=== PATIENT | male | born 1975 | race Caucasian/White ===

== ENCOUNTER 2017-01-23 15:51 | Emergency (ER) | payer BC, OTHER ==
--- NOTE | 2017-01-23 17:36 | Emergency Department Record ---
History of Present Illness - General Chief complaint: Eye Problem Stated complaint: BOTH EYES RED Time Seen by Provider: 01/23/17 17:33 Source: Patient, RN notes reviewed Mode of Arrival: Ambulatory - History of Present Illness Initial comments: using principal architect 2 days ago chief complaint: Eye redness Onset/Timin -: Days(s) Onset Description: Awoke with symptoms Location: Both eyes Place: Home If Injury: None Eye Symptoms: Burning, Blurry vision, Discharge, Itching, Pain, Redness Severity: Moderate Severity scale (1-10): 5 If Pain, Quality: Aching Consistency: Constant - Related Data Visual acuity (L) = 20/: 70 Visual acuity (R) = 20/: 70 Patient Tetanus UTD (within 5 yrs): Yes Home Medications Medication Instructions Recorded Confirmed Last Taken Sertraline HCl [Sertraline HCl] 100 mg PO DAILY 03/17/14 01/23/17 1 Day Ago Ibuprofen 800 mg PO QID ml 12/30/15 01/23/17 1 Day Ago Previous Rx's Medication Instructions Recorded Sulfacetamide Sodium [Bleph-10] 1 - 2 drop AFFEYE QID #5 ml 01/23/17 Allergies Allergy/AdvReac Type Severity Reaction Status Date / Time NO KNOWN DRUG ALLERGY Allergy HYPERSENSIT Uncoded 01/23/17 17:12 IVITY Travel Screening - Travel/Exposure Within Last 30 Days Have you traveled within the last 30 days?: No - Travel/Exposure Within Last Year Have you traveled outside the [place] in the last year?: No - Additonal Travel Details Have you been exposed to anyone with a communicable illness?: No - Travel Symptoms Symptom Screening: None Review of Systems Reviewed: No additional complaints except as noted below Constitutional: Reports: As per HPI. Denies: Chills, Fever, Malaise, Night sweats, Weakness, Weight change Eyes: Reports: As per HPI, Eye discharge, Other (gravel type feeling in eyes). Denies: Eye pain, Photophobia, Vision change ENT: Reports: As per HPI. Denies: Congestion, Dental pain, Ear pain, Epistaxis , Hearing loss, Throat pain Respiratory: Reports: As per HPI. Denies: Cough, Dyspnea, Hemoptysis, Stridor, Wheezes Cardiovascular: Reports: As per HPI. Denies: Arrhythmia, Chest pain, Dyspnea on exertion, Edema, Murmurs, Orthopnea, Palpitations, Paroxysmal nocturnal dyspnea, Rheumatic Fever, Syncope Endocrine: Reports: As per HPI. Denies: Fatigue, Heat or cold intolerance, Polydipsia, Polyuria Gastrointestinal: Reports: As per HPI. Denies: Abdominal pain, Constipation, Diarrhea, Hematemesis, Hematochezia, Melena, Nausea, Vomiting Genitourinary: Reports: As per HPI. Denies: Dysuria, Frequency, Hematuria, Incontinence, Retention, Testicular pain, Testicular mass, Urgency Musculoskeletal: Reports: As per HPI. Denies: Arthralgia, Back pain, Gout, Joint swelling, Myalgia, Neck pain Skin: Reports: As per HPI. Denies: Bruising, Change in color, Change in hair/ nails, Lesions, Pruritus, Rash Neurological: Reports: As per HPI. Denies: Abnormal gait, Confusion, Headache, Numbness, Paresthesias, Seizure, Tingling, Tremors, Vertigo, Weakness Psychiatric: Reports: As per HPI. Denies: Anxiety, Auditory hallucinations, Depression, Homicidal thoughts, Suicidal thoughts, Visual hallucinations Hematological/Lymphatic: Reports: As per HPI. Denies: Anemia, Blood Clots, Easy bleeding, Easy bruising, Swollen glands Past Medical History - SOCIAL HISTORY Smoking Status: Never smoker Alcohol Use: Occassional Drug Use: None - RESPIRATORY Hx Respiratory Disorders: No - CARDIOVASCULAR Hx Cardio Disorders: No - NEURO Hx Neuro Disorders: No - GI Hx GI Disorders: No - Hx Genitourinary Disorders: No - ENDOCRINE Hx Endocrine Disorders: No - MUSCULOSKELETAL Hx Musculoskeletal Disorders: Yes Comment:: back spasms - PSYCH Hx Psych Problems: Yes Hx Anxiety: Yes - HEMATOLOGY/ONCOLOGY Hx Hematology/Oncology Disorders: No Family Medical History Any Significant Family History?: Yes Physical Exam - General General Appearance: Alert, Oriented x3, Cooperative, No acute distress - Head Head exam: Normal inspection - Eye Eye exam: PERRL, Conjunctival injection, EOMI Pupils: Normal accommodation - ENT ENT exam: Normal exam, Mucous membranes moist, Normal external ear exam, Normal orophraynx, TM's normal bilaterally Ear exam: Normal external inspection. negative: External canal tenderness Nasal Exam: Normal inspection. negative: Discharge, Sinus tenderness Mouth exam: Normal external inspection, Tongue normal Teeth exam: Normal inspection. negative: Dental caries Throat exam: Normal inspection. negative: Tonsillar erythema, Tonsillar exudate - Neck Neck exam: Normal inspection, Full ROM. negative: Tenderness - Respiratory Respiratory exam: Normal lung sounds bilaterally. negative: Respiratory distress - Cardiovascular Cardiovascular Exam: Regular rate, Normal rhythm, Normal heart sounds - GI/Abdominal GI/Abdominal exam: Soft, Normal bowel sounds. negative: Tenderness - Rectal Rectal exam: Deferred - exam: Deferred - Extremities Extremities exam: Normal inspection, Full ROM, Normal capillary refill. negative: Tenderness - Back Back exam: Reports: Normal inspection, Full ROM. Denies: Muscle spasm, Rash noted, Tenderness - Neurological Neurological exam: Alert, Normal gait, Oriented X3, Reflexes normal - Psychiatric Psychiatric exam: Normal affect, Normal mood - Skin Skin exam: Dry, Intact, Normal color, Warm Course Vital Signs 01/23/17 17:03 Temperature 98.6 F Pulse Rate 91 H Respiratory 16 Rate Blood Pressure 137/93 Pulse Ox 96 slight up take of flurscein both eyes no abrasions Disposition Clinical Impression: Keratitis Conjunctivitis Qualifiers: Conjunctivitis type: acute Acute conjunctivitis type: unspecified Laterality: bilateral Qualified Code(s): H10.33 - Unspecified acute conjunctivitis, bilateral Disposition: Home, Self-Care Return To Work/School Note Provided: Yes Condition: (1) Good Instructions: Corneal Flash Emerson (ED) Additional Instructions: follow up with eye Dr in two days Prescriptions: Sulfacetamide Sodium [Bleph-10] 1 - 2 drop AFFEYE QID #5 ml Forms: Patient Portal Access Time of Disposition: 18:00
[2017-01-23] MEDS ORDERED: PROPARACAINE HCL OPTH 15ML BTL OPTH ONE (18:13)
[2017-01-23] MEDS ORDERED: SULFACETAMIDE SODIUM 15ML BTL OPTH ONE (18:14)
== END 2017-01-23 18:17 | disposition home or self-care (01) ==
LOC: ER 15:51
DX: H16.133 Photokeratitis, bilateral (principal); H10.33 Unspecified acute conjunctivitis, bilateral; W89.8XXA Exposure to other man-made visible and ultraviolet light, initial encounter; Y92.009 Unspecified place in unspecified non-institutional (private) residence as the place of occurrence of the external cause
CPT/HCPCS: 99282

== ENCOUNTER 2018-05-07 13:51 | Emergency (ER) | payer BC ==
[2018-05-07] MEDS ORDERED: SODIUM CHLORIDE 0.9% 500 ML IV ONE (14:27)
[2018-05-07] MEDS ORDERED: ACETAMINOPHEN 1,000 MG/100 ML BTL IVPB ONE (14:27)
[2018-05-07] MEDS ORDERED: KETOROLAC 30 MG/ML VIAL IVP ONE (14:27)
--- NOTE | 2018-05-07 14:30 | Emergency Department Record ---
History of Present Illness - General Chief complaint: Flank Pain Stated complaint: KIDNEY STONE Time Seen by Provider: 05/07/18 14:24 Source: Patient Mode of Arrival: Ambulatory Limitations: No limitations - History of Present Illness Initial comments: 42 yo male presents with right flank pain. The pain is sharp. It radiates around the side to the front. It is associated with nausea and vomiting. No rash. He has had renal stones in the past. This is similar. No fevers. No hematuria. No retention. MD Complaint: Other (right flank pain) Onset/Timin -: Days(s) Location: Right flank Radiation: R flank Severity: Severe Severity scale (1-10): 7 Quality: Sharp Consistency: Constant Improves with: None Worsens with: None Reports: Nausea/vomiting - Related Data Previous Rx's Medication Instructions Recorded Ondansetron [Zofran Odt] 4 mg PO Q8H #15 tab.rapdis 05/07/18 Tamsulosin HCl [Flomax] 0.4 mg PO DAILY #10 cap.er.24h 05/07/18 Allergies Allergy/AdvReac Type Severity Reaction Status Date / Time NO KNOWN DRUG ALLERGY Allergy HYPERSENSIT Uncoded 01/23/17 17:12 IVITY Travel Screening - Travel/Exposure Within Last 30 Days Have you traveled within the last 30 days?: No Review of Systems Constitutional: Denies: Chills, Fever, Malaise, Weakness, Other Eyes: Denies: Eye discharge ENT: Denies: Congestion Respiratory: Denies: Cough Cardiovascular: Denies: Chest pain, Syncope Endocrine: Denies: Fatigue Gastrointestinal: Reports: As per HPI, Abdominal pain, Nausea. Denies: Diarrhea Genitourinary: Denies: Dysuria, Frequency, Hematuria Musculoskeletal: Reports: Back pain. Denies: Arthralgia Skin: Denies: Bruising, Change in color, Rash Neurological: Denies: Headache Psychiatric: Denies: Anxiety Hematological/Lymphatic: Denies: Easy bleeding, Easy bruising Past Medical History - SOCIAL HISTORY Smoking Status: Never smoker Alcohol Use: Rare Drug Use: None - RESPIRATORY Hx Respiratory Disorders: No - CARDIOVASCULAR Hx Cardio Disorders: No - NEURO Hx Neuro Disorders: No - GI Hx GI Disorders: No - Hx Genitourinary Disorders: Yes Hx Kidney Stones: Yes - ENDOCRINE Hx Endocrine Disorders: No - MUSCULOSKELETAL Hx Musculoskeletal Disorders: Yes Comment:: back spasms - PSYCH Hx Psych Problems: Yes Hx Anxiety: Yes - HEMATOLOGY/ONCOLOGY Hx Hematology/Oncology Disorders: No Family Medical History Any Significant Family History?: No Physical Exam - General General Appearance: Alert, Oriented x3, Cooperative, No acute distress Limitations: No limitations - Head Head exam: Normal inspection - Eye Eye exam: Normal appearance. negative: Conjunctival injection, Scleral icterus - ENT ENT exam: Normal exam Ear exam: Normal external inspection Nasal Exam: Normal inspection Mouth exam: Normal external inspection - Neck Neck exam: Normal inspection - Respiratory Respiratory exam: Normal lung sounds bilaterally. negative: Respiratory distress - Cardiovascular Cardiovascular Exam: Regular rate, Normal rhythm, Normal heart sounds - GI/Abdominal GI/Abdominal exam: Soft. negative: Tenderness - Rectal Rectal exam: Deferred - exam: Deferred - Extremities Extremities exam: Normal inspection, Full ROM, Normal capillary refill. negative: Tenderness - Back Back exam: Denies: CVA tenderness (R), CVA tenderness (L), Paraspinal tenderness , Rash noted, Tenderness, Vertebral tenderness - Neurological Neurological exam: Alert, Normal gait, Oriented X3 - Psychiatric Psychiatric exam: Normal affect, Normal mood - Skin Skin exam: Dry, Intact, Normal color, Warm Course Vital Signs 05/07/18 14:09 Temperature 97.5 F L Pulse Rate [ 76 Pulse Ox Probe] Respiratory 20 Rate Blood Pressure 134/92 [Left Arm] Pulse Ox 98 - Reevaluation(s) Reevaluation #1: 05/07/18 14:52 The CBC was reviewed. No acute changes. 05/07/18 15:06 No changes on the BMP 05/07/18 15:[address] demonstrated a 3mm mid to distal obstructing stone. Bilateral intrarenal stones Pain and nausea much improved. 05/07/18 15:48 The UA was reviewed No signs of convincing infection 05/07/18 15:51 The pain is well controlled. We discussed DC, close follow up and reasons to return to the ED Medical Decision Making - Lab Data Result diagrams: 05/07/18 14:35 05/07/18 14:35 Disposition Disposition: Discharge Clinical Impression: Renal colic on right side Disposition: Home, Self-Care Condition: (1) Good Instructions: Renal Colic (ED) Additional Instructions: Return to the ER if fever, uncontrolled pain, vomiting or any concerns Strain your urine to see if the stone passes Prescriptions: Ondansetron [Zofran Odt] 4 mg PO Q8H #15 tab.rapdis Tamsulosin HCl [Flomax] 0.4 mg PO DAILY #10 cap.er.24h Referrals: LISA FOY M.D. [MEDICAL DOCTOR] - [facility] [Provider Group] Forms: Patient Portal Access Time of Disposition: 15:49 Quality - Quality Measures Quality Measures: N/A - Blood Pressure Screening Does Patient Have Any of the Following: No Blood Pressure Classification: Hypertensive Reading Systolic Measurement: 134 Diastolic Measurement: 92 Screening for High Blood Pressure: < Pre-Hypertensive BP, F/U Documented > [ G8950] Pre-Hypertensive Follow-up Interventions: Referral to alternative/primary care provider.
[2018-05-07 14:44] LABS: BASO % 0.9 % (0-6); EOS % 3.4 % (0-6); GRAN % 54.9 % (47-80); HEMATOCRIT 43.5 % (42.0-52.0); HEMOGLOBIN 15.3 gm/dl (14.0-18.0); LYMPH % 28.5 % (16-45); MEAN CELL VOLUME 87.3 fl (81-97); MEAN CORPUSCULAR HEMOGLOBIN 30.7 pg (27-33); MEAN CORPUSCULAR HGB CONC 35.2 g/dl (32-36); MEAN PLATELET VOLUME 9.9 fl (7.4-10.4); MONO % 12.3 % (0-9); PLATELET COUNT 279 K/uL (130-400); RED BLOOD COUNT 4.98 M/uL (4.40-5.70); WHITE BLOOD COUNT W/O DIFF 5.6 K/uL (4.2-12.2)
[2018-05-07 14:53] LABS: BLOOD UREA NITROGEN 14 mg/dL (6-20); CREATININE 0.9 mg/dL (0.7-1.2); EST GLOMERULAR FILTRATION RATE > 60 mL/min
[2018-05-07 14:56] LABS: GLUCOSE,RANDOM 142 mg/dL (74-109)
[2018-05-07] MEDS ORDERED: ONDANSETRON HCL IV 4 MG/2 ML VIAL IVP ONE (15:01)
[2018-05-07] MEDS ORDERED: TAMSULOSIN HCL 0.4 MG CAP.ER.24H PO ONE (15:14)
[2018-05-07 15:24] LABS: URINE BILIRUBIN SMALL (NEGATIVE); URINE BLOOD LARGE (NEGATIVE); URINE GLUCOSE (UA) NEGATIVE (NEGATIVE); URINE KETONE NEGATIVE (NEGATIVE); URINE LEUKOCYTE ESTERASE TRACE (NEGATIVE); URINE NITRITE NEGATIVE (NEGATIVE); URINE UROBILINOGEN 0.2 E.U./dL (0.20 - 1.00)
[2018-05-07 15:25] LABS: URINE APPEARANCE CLOUDY; URINE COLOR OTHER
[2018-05-07 15:29] LABS: URINE BACTERIA FEW; URINE EPITHELIAL CELLS 0 - 2 (FEW); URINE RBC >50 (NONE SEEN); URINE WBC 0 - 2 (0-2/hpf)
[2018-05-07] MEDS ORDERED: ONDANSETRON 4 MG ODT TABLET SL ONE (16:00)
--- NOTE | 2018-05-08 15:00 | CT SCAN REPORT ---
EXAM: CT OF THE ABDOMEN AND PELVIS WITHOUT CONTRAST HISTORY: RIGHT FLANK PAIN. UNABLE TO URINATE. TECHNIQUE: Routine noncontrast CT images of the abdomen and pelvis were obtained. FINDINGS: The visualized lung bases are unremarkable. The liver, gallbladder, pancreas, spleen, and adrenals have a normal noncontrast appearance. There is a 5 cm size range fluid density cyst within the interpolar right kidney on this noncontrast exam. There are multiple right greater than left intrarenal calculi. There is mild hydroureteronephrosis. No left ureteral calculus was seen. The bowel is normal in caliber. The appendix has a normal noncontrasted appearance. No gastrointestinal wall thickening. The bladder is unremarkable. The prostate is present. The aorta is normal in caliber. No abdominal or pelvic lymphadenopathy. No free air or free fluid. There is bilateral L5 pars defects with Grade 1 anterolisthesis L5-S1. Moderate degenerative disk disease at L5-S1. IMPRESSION: 1. THERE IS A 3 MM OBSTRUCTING CALCULUS WITHIN THE MID/DISTAL RIGHT URETER. THIS CAUSES MILD RIGHT HYDROURETERONEPHROSIS. 2. BILATERAL INTRARENAL CALCULI, RIGHT GREATER THAN LEFT. 3. LARGE 5 CM SIZE RANGE RIGHT RENAL CYST SUBOPTIMALLY ASSESSED ON THIS NONCONTRAST CT. 4. BILATERAL L5 PARS DEFECTS WITH GRADE 1 ANTEROLISTHESIS AT L5-S1 AND MODERATE DEGENERATIVE DISK DISEASE. JOB NUMBER: [id number] [facility]
== END 2018-05-07 16:17 | disposition home or self-care (01) ==
LOC: ER 13:51
DX: N13.2 Hydronephrosis with renal and ureteral calculous obstruction (principal); R11.2 Nausea with vomiting, unspecified; Z87.442 Personal history of urinary calculi
CPT/HCPCS: 99284 ×2; 96365; 96375; 85025; 80048; 81001; 74176; J1885; J2405

== ENCOUNTER 2018-05-09 17:30 | Emergency (ER) | payer BC ==
--- NOTE | 2018-05-09 18:25 | Emergency Department Record ---
History of Present Illness - General Chief complaint: Flank Pain Stated complaint: RT FLANK PAIN, CANT KEEP FOOD DOWN Time Seen by Provider: 05/09/18 18:15 Source: Patient Mode of Arrival: Ambulatory Limitations: No limitations - History of Present Illness Initial comments: 42 yo male returns to ED for evaluation of nausea, vomiting, and unable to tolerate PO fluids following diagnosis 2 days ago of a 3 mm mid-ureteral obstructing calculus. Patient reports "feeling hot and chills alternating", denies anayeli fever symptoms. Patient does report a history of kidney stones previously but denies ever seeing a urologist previously. Patient has been taking Flomax and Zofran at home for his symptoms without improvement. MD Complaint: Other Onset/Timin -: Days(s) Location: Right flank Severity: Moderate Severity scale (1-10): 8 Quality: Sharp Consistency: Constant Improves with: None Worsens with: None Reports: Denies other symptoms - Related Data Previous Rx's Medication Instructions Recorded Ondansetron [Zofran Odt] 4 mg PO Q8H #15 tab.rapdis 05/07/18 Tamsulosin HCl [Flomax] 0.4 mg PO DAILY #10 cap.er.24h 05/07/18 Allergies Allergy/AdvReac Type Severity Reaction Status Date / Time No Known Drug Allergies Allergy Verified 05/09/18 17:57 Travel Screening - Travel/Exposure Within Last 30 Days Have you traveled within the last 30 days?: No - Travel/Exposure Within Last Year Have you traveled outside the [place] in the last year?: No - Additonal Travel Details Have you been exposed to anyone with a communicable illness?: No - Travel Symptoms Symptom Screening: None Review of Systems Constitutional: Reports: Chills. Denies: Fever, Malaise, Night sweats Eyes: Denies: Eye discharge, Eye pain ENT: Denies: Congestion, Ear pain, Epistaxis Respiratory: Denies: Cough, Dyspnea Cardiovascular: Denies: Chest pain, Dyspnea on exertion Endocrine: Denies: Fatigue, Heat or cold intolerance Gastrointestinal: Reports: Abdominal pain, Nausea, Vomiting. Denies: Constipation Genitourinary: Reports: Hematuria. Denies: Incontinence, Retention Musculoskeletal: Reports: Back pain. Denies: Arthralgia Skin: Denies: Bruising, Change in color Neurological: Reports: Headache. Denies: Abnormal gait, Confusion Psychiatric: Denies: Anxiety Hematological/Lymphatic: Denies: Anemia, Blood Clots Past Medical History - SOCIAL HISTORY Smoking Status: Never smoker Alcohol Use: None Drug Use: None - RESPIRATORY Hx Respiratory Disorders: No - CARDIOVASCULAR Hx Cardio Disorders: No - NEURO Hx Neuro Disorders: No - GI Hx GI Disorders: No - Hx Genitourinary Disorders: Yes Hx Kidney Stones: Yes - ENDOCRINE Hx Endocrine Disorders: No - MUSCULOSKELETAL Hx Musculoskeletal Disorders: Yes Comment:: back spasms - PSYCH Hx Psych Problems: Yes Hx Anxiety: Yes - HEMATOLOGY/ONCOLOGY Hx Hematology/Oncology Disorders: No Family Medical History Any Significant Family History?: No Physical Exam - General General Appearance: Alert, Oriented x3, Cooperative, Moderate distress Limitations: No limitations - Head Head exam: Atraumatic, Normocephalic, Normal inspection Head exam detail: negative: Abrasion, Contusion, William's sign, General tenderness, Hematoma, Laceration - Eye Eye exam: Normal appearance. negative: Conjunctival injection, Periorbital swelling, Periorbital tenderness, Scleral icterus - ENT Ear exam: negative: Auricular hematoma, Auricular trauma Nasal Exam: negative: Active bleeding, Discharge, Dried blood, Foreign body Mouth exam: negative: Drooling, Laceration, Muffled voice, Tongue elevation - Neck Neck exam: Normal inspection. negative: Meningismus, Tenderness - Respiratory Respiratory exam: Normal lung sounds bilaterally. negative: Respiratory distress, Rhonchi, Stridor, Wheezes - Cardiovascular Cardiovascular Exam: Regular rate, Normal rhythm, Normal heart sounds - GI/Abdominal GI/Abdominal exam: Soft. negative: Rebound, Rigid, Tenderness - Rectal Rectal exam: Deferred - exam: Deferred - Extremities Extremities exam: Normal inspection. negative: Pedal edema, Tenderness - Back Back exam: Reports: CVA tenderness (R). Denies: CVA tenderness (L) - Neurological Neurological exam: Alert, Normal gait, Oriented X3 - Psychiatric Psychiatric exam: Normal affect, Normal mood - Skin Skin exam: Normal color. negative: Abrasion Type of lesion: negative: abrasion Course Vital Signs 05/09/18 17:58 Temperature 98.3 F Pulse Rate 93 H Respiratory 20 Rate Blood Pressure 133/88 Pulse Ox 98 - Reevaluation(s) Reevaluation #1: 05/09/18 18:24 CT Abdomen and Pelvis 05/07/18: 3 mm obstructing calculus mid-right ureter with mild hydronephrosis Reevaluation #2: 05/09/18 18:49 Labs reviewed, WBC 12.9, labs are otherwise grossly unremarkable for an acute process. UA does not appear c/w infection, mild hematuria is present (10-15 RBCs). Will reassess following analgesia and anti-emetics. Reevaluation #3: 05/09/18 19:21 Patient reassessed and reports that he is feeling much better. Discussed treatment options, patient reports that he would like to go home at this time. Medical Decision Making - Lab Data Result diagrams: 05/09/18 18:10 05/09/18 18:10 Disposition Disposition: Discharge Clinical Impression: Renal colic on right side Nausea & vomiting Qualifiers: Vomiting type: unspecified Vomiting Intractability: non-intractable Qualified Code(s): R11.2 - Nausea with vomiting, unspecified Disposition: Home, Self-Care Condition: (2) Stable Instructions: Renal Colic (ED) Additional Instructions: Return to ED if your symptoms worsen or if you have any concerns. Continue Zofran and Tylenol as directed. Follow-up with Dr. Goldsmith as scheduled.. Forms: Patient Portal Access Time of Disposition: 19:26 Quality - Quality Measures Quality Measures: N/A - Blood Pressure Screening Does Patient Have Any of the Following: No Blood Pressure Classification: Pre-Hypertensive BP Reading Systolic Measurement: 133 Diastolic Measurement: 88 Screening for High Blood Pressure: < Pre-Hypertensive BP, F/U Documented > [ G8950] Pre-Hypertensive Follow-up Interventions: Referral to alternative/primary care provider.
[2018-05-09 18:28] LABS: BASO % 0.2 % (0-6); EOS % 0.5 % (0-6); GRAN % 78.7 % (47-80); HEMATOCRIT 44.4 % (42.0-52.0); HEMOGLOBIN 15.3 gm/dl (14.0-18.0); LYMPH % 10.5 % (16-45); MEAN CELL VOLUME 87.6 fl (81-97); MEAN CORPUSCULAR HEMOGLOBIN 30.2 pg (27-33); MEAN CORPUSCULAR HGB CONC 34.5 g/dl (32-36); MEAN PLATELET VOLUME 9.8 fl (7.4-10.4); MONO % 10.1 % (0-9); PLATELET COUNT 285 K/uL (130-400); RED BLOOD COUNT 5.07 M/uL (4.40-5.70); RED CELL DISTRIBUTION WIDTH 12.1 % (11.5-14.5); URINE APPEARANCE CLEAR; URINE BILIRUBIN NEGATIVE (NEGATIVE); URINE BLOOD MODERATE (NEGATIVE); URINE COLOR YELLOW; URINE GLUCOSE (UA) NEGATIVE (NEGATIVE); URINE KETONE 15 mg/dL (NEGATIVE); URINE LEUKOCYTE ESTERASE NEGATIVE (NEGATIVE); URINE NITRITE NEGATIVE (NEGATIVE); URINE PROTEIN NEGATIVE (NEGATIVE); URINE UROBILINOGEN 0.2 E.U./dL (0.20 - 1.00); WHITE BLOOD COUNT W/O DIFF 12.9 K/uL (4.2-12.2)
[2018-05-09 18:38] LABS: BLOOD UREA NITROGEN 17 mg/dL (6-20); CREATININE 1.2 mg/dL (0.7-1.2); EST GLOMERULAR FILTRATION RATE > 60 mL/min
[2018-05-09 18:39] LABS: URINE BACTERIA FEW; URINE EPITHELIAL CELLS 0 - 2 (FEW); URINE WBC 0 - 2 (0-2/hpf)
[2018-05-09 18:40] LABS: GLUCOSE,RANDOM 130 mg/dL (74-109); URINE MUCUS LIGHT
[2018-05-09] MEDS: ONDANSETRON HCL IV 4 MG/2 ML VIAL IVP ONE (18:40)
[2018-05-09] MEDS: KETOROLAC 30 MG/ML VIAL IVP ONE (18:40)
[2018-05-09] MEDS: 0.9 % SODIUM CHLORIDE 1000ML 1,000 ML IV SCH (18:41)
[2018-05-09 18:43] LABS: ALB/GLOB RATIO 1.5 (1.1-1.8); ALBUMIN 4.2 g/dL (4.0-5.0); ALKALINE PHOSPHATASE 72 U/L (40-129); ALT/SGPT 20 U/L (<41); AST/SGOT 19 U/L (10.0-50.0)
== END 2018-05-09 19:37 | disposition home or self-care (01) ==
LOC: ER 17:30
DX: N13.2 Hydronephrosis with renal and ureteral calculous obstruction (principal); Z87.442 Personal history of urinary calculi
CPT/HCPCS: 99284 ×2; 96374; 96375; 96361; 85025; 80053; 81001; J1885; J2405; J7030